=== PATIENT | male | born 1990 | race Caucasian/White ===

== ENCOUNTER 2017-10-14 09:36 | Outpatient (CLI) | payer OTHER | END 2017-10-14 09:37 | disposition home or self-care (01) | LOC: BICRAD 09:36 | PROVIDERS: ATTEND Physician Assistant Medical | DX: M25.511 Pain in right shoulder (principal) ==

== ENCOUNTER 2017-11-05 12:33 | Outpatient (CLI) | payer OTHER | END 2017-11-05 12:34 | disposition home or self-care (01) | LOC: BICMRI 12:33 | PROVIDERS: ATTEND Family Medicine | DX: M47.892 Other spondylosis, cervical region; M54.2 Cervicalgia; M99.81 Other biomechanical lesions of cervical region | CPT/HCPCS: 72141 ==

== ENCOUNTER 2019-03-30 09:29 | Outpatient (CLI) | payer BC ==
--- NOTE | 2019-03-30 10:09 | ULT ---
GALLBLADDER ULTRASOUND: HISTORY:Elevated LFTs FINDINGS: The liver demonstrates increased echogenicity consistent with fatty infiltration without focal mass o r intrahepatic biliary ductal dilatation. No gallstones, gallbladder wall thickening or pericholecystic fluid are seen. The right kidney and visualized portions of the pancreas are normal. The common duct [id number] in diameter. No free fluid is seen in the Vasquez's pouch. IMPRESSION: 1. Fatty liver 2. No evidence of cholelithiasis
== END 2019-03-30 09:30 | disposition home or self-care (01) ==
LOC: ULT 09:29
PROVIDERS: ATTEND Family Medicine
DX: R79.89 Other specified abnormal findings of blood chemistry (principal); K76.0 Fatty (change of) liver, not elsewhere classified
CPT/HCPCS: 76705